=== PATIENT | male | born 1945 | race Caucasian/White ===

== ENCOUNTER → 2016-12-24 | Outpatient (CLI) | payer MEDICARE ==
[~2016-12-24] MED LIST: ASPIRIN81 M1 PO; CEFUROXIME AXE250 MG PO; CLOPIDOGREL75 MG PO; GLIPIZIDE10 MG PO; JANUVIA100 MG PO; LISINOPRIL10 MG PO; LOVASTATIN40 MG PO; METFORMIN1000 MG PO; NORVASC2.5 MG PO; PROSCAR5 M1 PO; TAMSULOSIN HCL0.4 MG PO; VITAMIN D400 IU PO
== END | disposition home or self-care (01) ==
LOC: RAD 11:46
DX: M25.512 Pain in left shoulder (principal); M81.0 Age-related osteoporosis without current pathological fracture

== ENCOUNTER → 2017-04-15 | Day surgery (SDC) | payer MEDICARE ==
[~2017-04-15] VITALS: Ht 182.8 cm; Wt 93.0 kg
[~2017-04-15] MED LIST changes: +LEVEMIR FLEX100 U/ML SC
--- NOTE | ~2017-04-15 | PROC NOTE ---
[place], [place] PROCEDURE NOTE NAME: BATSHEVA GARCIA [facility] #: [id number] UNIT #: [id number] ROOM: DOCTOR: MCKENZIE CLARKE MD BIRTHDATE: [birth year] DOS: 04/15/2017 PREOPERATIVE DIAGNOSIS: Screening examination. POSTOPERATIVE DIAGNOSIS: Sigmoid diverticulosis. PROCEDURE: Colonoscopy. ENDOSCOPIST: Mckenzie Clarke MD PAN TANK WORKER: [id number]. INDICATIONS: MAC. INDICATION: This is a 71-year-old gentleman here for his screening examination. It was decided to take the patient for a screening colonoscopy. The procedure and its complications were explained to the patient in detail and he agreed to proceed. DESCRIPTION OF PROCEDURE: After identifying the patient, the patient was brought to the operating suite and laid in the left lateral position. After timeout procedure was called, sedation was administered and a digital rectal exam was performed. This was within normal limits. An adult colonoscope was now introduced into the anal canal and advanced sequentially into the rectum, sigmoid colon, descending colon, transverse colon and ascending colon up to the cecum. The prep was found to be optimal. Upon reaching the cecum, the scope was withdrawn. Total withdrawal time was approximately 6 minutes and 50 seconds. During the procedure of the withdrawal, there was found to be sigmoid diverticulosis that was identified. There were no other mucosal lesions that could be seen. The scope was then withdrawn and the patient was taken to the recovery room in stable fashion. Dr. Mckenzie Clarke, the attending endoscopist was present throughout the operating case. Based on these findings, the patient is recommended to have another colonoscopy in 10 years or sooner if he had new symptoms. These findings were discussed with the patient's and I will talk to the patient when he sees me in the office in 2 weeks. Mckenzie Clarke MD CM:PROCNOTE:PROCEDURE NOTE [id number] MCKENZIE CLARKE MD
[2017-04-15 09:00] VITALS: BP 154/82
[2017-04-15 10:12] VITALS: BP 115/69
[2017-04-15 10:25] VITALS: BP 150/74
[2017-04-15 10:42] VITALS: BP 162/92
== END | disposition home or self-care (01) ==
LOC: SDC 04-14 08:00
DX: Z12.11 Encounter for screening for malignant neoplasm of colon (principal); K57.30 Diverticulosis of large intestine without perforation or abscess without bleeding; E11.9 Type 2 diabetes mellitus without complications; I10 Essential (primary) hypertension; Z80.9 Family history of malignant neoplasm, unspecified; Z83.3 Family history of diabetes mellitus

== ENCOUNTER → 2017-06-21 | Outpatient (CLI) | payer MEDICARE | END | disposition home or self-care (01) | LOC: US 12:46 | DX: I73.9 Peripheral vascular disease, unspecified (principal) ==

== ENCOUNTER → 2018-06-06 | Outpatient (CLI) | payer MEDICARE | END | disposition home or self-care (01) | LOC: US 13:06 | DX: I73.9 Peripheral vascular disease, unspecified (principal); E11.9 Type 2 diabetes mellitus without complications; I10 Essential (primary) hypertension ==

== ENCOUNTER 2020-02-22 21:36 | Emergency (ER) | payer MEDICARE ==
[~2020-02-22] VITALS: Wt 98.9 kg
[2020-02-22 21:55] LABS: HEMATOCRIT 30.7 % (42.0-52.0); HEMOGLOBIN 9.3 g/dl (14.0-18.0); MEAN CELL VOLUME 91.9 fl (80.0-94.0); MEAN CORPUSCULAR HGB 27.8 pg (27.0-31.0); MEAN CORPUSCULAR HGB CONC 30.3 g/dl (33.0-37.0); MEAN PLATELET VOLUME 9.2 fl (9.6-12.3); PLATELET COUNT AUTOMATED 511 10*3/uL (130-400); RED BLOOD COUNT 3.34 10*6/uL (4.50-5.90); RED CELL DISTRI WIDTH 13.1 % (0-14.5); WHITE BLOOD COUNT 18.9 10*3/uL (4.8-10.8)
[2020-02-22 22:06] LABS: ACT PARTIAL THROMBO TIME 28.4 SECONDS (20.0-32.1)
[2020-02-22 22:11] LABS: ALBUMIN 2.2 gm/dl (3.1-4.5); CREATININE 1.9 mg/dL (0.70-1.30); POTASSIUM 5.3 mmol/L (3.5-5.1); TOTAL PROTEIN 7.9 gm/dL (6.4-8.2)
[2020-02-22 22:13] LABS: TROPONIN I 0.621 ng/ml (<0.045)
[2020-02-22 22:14] LABS: BASOPHILS 2 % (0-1); PLATELET SUFFICIENCY HIGH (NORMAL); TOTAL CELLS COUNTED 100 #CELLS
[2020-02-22 22:15] LABS: OVALOCYTES FEW; POLYCHROMASIA SLIGHT
== END 2020-02-22 22:53 | disposition short-term general hospital (02) ==
LOC: ED 21:36
PROVIDERS: Emergency Medicine Emergency Medical Services
DX: I21.3 ST elevation (STEMI) myocardial infarction of unspecified site (principal); E11.9 Type 2 diabetes mellitus without complications; I10 Essential (primary) hypertension; Z79.899 Other long term (current) drug therapy; Z79.82 Long term (current) use of aspirin; Z79.4 Long term (current) use of insulin

== ENCOUNTER 2020-06-10 14:37 | Emergency (ER) | payer MEDICARE ==
[~2020-06-10] VITALS: Wt 86.2 kg
[2020-06-10 15:15] LABS: BASO % 0.4 % (0.0-1.0); EOS # 0.2 10*3/uL (0.0-0.4); EOS % 1.8 % (1.0-4.0); HEMATOCRIT 34.9 % (42.0-52.0); LYMPH % 9.3 % (27.0-41.0); MEAN CELL VOLUME 89.7 fl (80.0-94.0); MEAN CORPUSCULAR HGB 28.8 pg (27.0-31.0); MEAN CORPUSCULAR HGB CONC 32.1 g/dl (33.0-37.0); MEAN PLATELET VOLUME 9.9 fl (9.6-12.3); MONO # 0.6 10*3/uL (0.1-1.0); MONO % 5.2 % (3.0-9.0); NEUT % 82.7 % (47.0-73.0); PLATELET COUNT AUTOMATED 180 10*3/uL (130-400); RED BLOOD COUNT 3.89 10*6/uL (4.50-5.90); RED CELL DISTRI WIDTH 13.3 % (0-14.5); WHITE BLOOD COUNT 10.8 10*3/uL (4.8-10.8)
[2020-06-10 15:26] LABS: ACT PARTIAL THROMBO TIME 25.2 SECONDS (20.0-32.1)
[2020-06-10 15:31] LABS: ALBUMIN 3.5 gm/dl (3.1-4.5); ALKALINE PHOSPHATASE 75 U/L (45-117); BUN 21 mg/dl (7-24); CHLORIDE 110 mmol/L (98-107); CREATININE 1.53 mg/dL (0.70-1.30); POTASSIUM 4.4 mmol/L (3.5-5.1); SGOT/AST 21 IU/L (3-35); SGPT/ALT 31 U/L (12-78); SODIUM 140 mmol/L (136-145); TOTAL PROTEIN 7.2 gm/dL (6.4-8.2)
[2020-06-10 15:32] LABS: LIPASE 116 U/L (73-393)
[2020-06-10 15:42] LABS: TROPONIN I < 0.015 ng/ml (<0.045)
== END 2020-06-10 17:00 | disposition short-term general hospital (02) ==
LOC: ED 14:37
PROVIDERS: Emergency Medicine
DX: I62.9 Nontraumatic intracranial hemorrhage, unspecified (principal); I10 Essential (primary) hypertension; E11.9 Type 2 diabetes mellitus without complications; Z79.899 Other long term (current) drug therapy; Z79.82 Long term (current) use of aspirin

== ENCOUNTER → 2021-05-27 | Outpatient (CLI) | payer MEDICARE | END | disposition home or self-care (01) | LOC: US 07:04 | PROVIDERS: ATTEND Student in an Organized Health Care Education/Training Program | DX: Z13.6 Encounter for screening for cardiovascular disorders (principal) ==

== ENCOUNTER 2022-06-29 05:46 | Emergency (ER) | payer MEDICARE ==
[~2022-06-29] VITALS: Ht 177.8 cm; Wt 101.6 kg
[~2022-06-29 05:46] MED LIST changes: -GLIPIZIDE10 MG PO; +GLIPIZIDE5 M1 PO; +LEVEMIR FL100 UNIT/1 SC; -LEVEMIR FLEX100 U/ML SC; -LISINOPRIL10 MG PO; +LISINOPRIL40 MG PO; +METFORMIN HYD1000 MG PO; -METFORMIN1000 MG PO; +NORVASC10 MG PO; -NORVASC2.5 MG PO
[2022-06-29] MEDS ORDERED: HUMALOG100 UNIT/1 SQ (05:53)
[2022-06-29] MEDS ORDERED: TOPROL XL50 M1 PO (05:54)
[2022-06-29] MEDS ORDERED: PROSCAR5 M1 PO (05:54)
[2022-06-29] MEDS ORDERED: NEURONTIN100 MG PO (05:55)
[2022-06-29 06:10] LABS: HEMATOCRIT 32.5 % (42.0-52.0); MEAN CELL VOLUME 99.7 fl (80.0-94.0); MEAN CORPUSCULAR HGB 29.1 pg (27.0-31.0); MEAN CORPUSCULAR HGB CONC 29.2 g/dl (33.0-37.0); MEAN PLATELET VOLUME 10.6 fl (9.6-12.3); NUCLEATED RED BLOOD CELL 0.3 % (0.0-0.0); PLATELET COUNT AUTOMATED 174 10*3/uL (130-400); RED BLOOD COUNT 3.26 10*6/uL (4.50-5.90); RED CELL DISTRI WIDTH 12.7 % (0-14.5); WHITE BLOOD COUNT 14.3 10*3/uL (4.8-10.8)
[2022-06-29 06:14] LABS: MANUAL DIFF REFLEX YES
[2022-06-29 06:22] LABS: ACT PARTIAL THROMBO TIME 53.7 SECONDS (20.0-32.1)
[2022-06-29 06:24] LABS: CREATININE 2.11 mg/dL (0.70-1.30); POTASSIUM 5.2 mmol/L (3.5-5.1); TOTAL PROTEIN 5.3 gm/dL (6.4-8.2)
[2022-06-29 06:35] LABS: ATYPICAL LYMPHS 2 % (0-0); BASOPHILS 1 % (0-1); BURR CELLS FEW; POLYCHROMASIA SLIGHT; TOTAL CELLS COUNTED 100 #CELLS
[2022-06-29 06:36] LABS: OVALOCYTES FEW; PLATELET SUFFICIENCY NORMAL (NORMAL)
== END 2022-06-29 06:04 ==
LOC: ED 05:46
PROVIDERS: Internal Medicine
DX: I46.9 Cardiac arrest, cause unspecified (principal); Z79.899 Other long term (current) drug therapy